=== PATIENT | female | born 1945 | race Caucasian/White ===

== ENCOUNTER 2018-03-07 10:18 | Emergency (ER) | payer MEDICARE, BC ==
[~2018-03-07] VITALS: Ht 157.5 cm; Wt 58.2 kg
[~2018-03-07 10:18] MED LIST: ASPI325T PO; HYDR-2768 PO; LEVEMIR SQ; METF500 PO; METF500T PO; OMEP20CA5 PO
[2018-03-07 10:26] VITALS: BP 175/88; PULSE 116; RESP 16; TEMP 98.5; O2SAT 96
[2018-03-07] MEDS ORDERED: diphenhydrAMINE HCL 50 MG/ML VIAL IV PUSH ONE (11:00)
[2018-03-07] MEDS ORDERED: CIPR-9 PO (11:00)
[2018-03-07] MEDS ORDERED: LEVEMIR SQ (11:00)
[2018-03-07] MEDS ORDERED: methylPREDNISolone SOD SUCC 125 MG/2 ML VIAL IV PUSH ONE (11:00)
[2018-03-07] MEDS ORDERED: AMLO5TAB2 PO (11:00)
[2018-03-07] MEDS ORDERED: METF1000 PO (11:00)
[2018-03-07] MEDS ORDERED: ASPI-516 CHEW (11:00)
[2018-03-07] MEDS ORDERED: ONDANSETRON HCL 4 MG/2 ML VIAL IV PUSH ONE (11:15)
--- NOTE | 2018-03-07 11:35 | PD ---
HPI Chief Complaint: Allergic/Adverse Reaction Time Seen by Provider: 10:58 Travel History International Travel<30 days: No Contact w/Intl Traveler<30days: No Traveled to known affect area: No History of Present Illness HPI 72-year-old female is complaining of swelling of her lower lip. This started this morning got a little bit worse. She does not have any rash. It started as a little bit of pain on the left side. She finished a course of Cipro yesterday. She takes amlodipine for high blood pressure. She does not take an LOKESH inhibitor. She is not short of breath PFSH Past Medical History Hx Anticoagulant Therapy: Yes (asa 81mg) Heart Rhythm Problems: No Cancer: No Cardiovascular Problems: Yes (htn on meds) High Cholesterol: No Chest Pain: No Congestive Heart Failure: No Diabetes: Yes (type 2) Patient Takes Glucophage: Yes Diminished Hearing: No Headaches: Yes Hypertension: Yes Musculoskeletal: No Neurologic: Yes (migraines) Psychiatric: No Reproductive: No Respiratory: No Immunizations Current: Yes Migraines: Yes Pneumonia: Yes Thyroid Disease: No Tetanus Vaccination: > 5 Years Influenza Vaccination: Yes ?: Not Menopausal: Yes Past Surgical History Cholecystectomy: Yes Joint Replacement: Yes (LEFT KNEE) Tonsillectomy: Yes Other Surgery: Yes (left knee replacement, cholecystectomy) Social History Alcohol Use: No Tobacco Use: No Substance Use: No Allergies-Medications (Allergen,Severity, Reaction): Coded Allergies: penicillin G (Unverified Allergy, Severe, 03/07/18) grass pollen (Unverified Allergy, Intermediate, Cough, 03/07/18) house dust (Unverified Allergy, Intermediate, Cough, 03/07/18) mold (Unverified Allergy, Intermediate, Cough, 03/07/18) prednisone (Unverified Allergy, Intermediate, elevaled blood sugar , ) sulfamethoxazole (Unverified Allergy, Intermediate, 03/07/18) sumatriptan (Unverified Allergy, Intermediate, Muscle weeknes , 03/07/18) trimethoprim (Unverified Allergy, Intermediate, 03/07/18) Uncoded Allergies: perfume (Allergy, Intermediate, Cough, 12/10/14) Reported Meds & Prescriptions Reported Meds & Active Scripts Active Reported Cipro (Ciprofloxacin HCl) 500 Mg Tab 500 Mg PO BID Aspirin 81 Mg Chew 81 Mg CHEW DAILY Levemir Inj (Insulin Detemir) 1,000 unit/ 10 ML Vial 20 Units SQ DAILY Do not mix with any other Insulin. Amlodipine (Amlodipine Besylate) 5 Mg Tab 5 Mg PO DAILY Metformin (Metformin HCl) 1,000 Mg Tab 1,000 Mg PO BIDPC Review of Systems General / Constitutional: No: Fever, Chills Eyes: No: Diploplia, Blurred Vision HENT: Positive: Other (Swollen lymph), No: Headaches, Vertigo Cardiovascular: No: Chest Pain or Discomfort, Palpitations Respiratory: No: Cough, Shortness of Breath Gastrointestinal: No: Nausea, Vomiting Genitourinary: No: Urgency, Frequency Skin: No Rash, No Itching Neurologic: No: Weakness Physical Exam Narrative GENERAL: Well-developed female SKIN: Focused skin assessment warm/dry. HEAD: Atraumatic. Normocephalic. EYES: Pupils equal and round. No scleral icterus. No injection or drainage. ENT: No nasal bleeding or discharge. Mucous membranes pink and moist. Soft tissue swelling of the lower lip. The tongue is normal. Posterior pharynx is negative NECK: Trachea midline. No JVD. CARDIOVASCULAR: Regular rate and rhythm. No murmur appreciated. RESPIRATORY: No accessory muscle use. Clear to auscultation. Breath sounds equal bilaterally. GASTROINTESTINAL: Abdomen soft, non-tender, nondistended. Hepatic and splenic margins not palpable. MUSCULOSKELETAL: No obvious deformities. No clubbing. No cyanosis. No edema. NEUROLOGICAL: Awake and alert. No obvious cranial nerve deficits. Motor grossly within normal limits. Normal speech. PSYCHIATRIC: Appropriate mood and affect; insight and judgment normal. Data Data Last Documented VS Vital Signs Date Time Temp Pulse Resp B/P (MAP) Pulse Ox O2 Delivery O2 Flow Rate FiO2 03/07/18 10:52 112 96 Room Air 03/07/18 10:26 98.5 16 175/88 (117) Orders Orders Diphenhydramine Inj (Benadryl Inj) (03/07/18 11:00) Methylprednisolone So Succ Inj (Solumedr (03/07/18 11:00) Ondansetron Inj (Zofran Inj) (03/07/18 11:15) MDM Medical Decision Making Medical Screen Exam Complete: Yes Emergency Medical Condition: Yes Medical Record Reviewed: Yes Differential Diagnosis Differential includes angioedema of the lip, allergic reaction Narrative Course Patient is quite sure she is not on LOKESH inhibitor. She did finish her course of Cipro yesterday and this may be the cause. She has been given Benadryl and Solu-Medrol. She has been observed and there is been no progression. She is stable for discharge Diagnosis Primary Impression: Allergic reaction Additional Impression: Angioedema of lips Additional Instructions: Return if worsening or recurrence of symptoms Disposition: 01 DISCHARGE HOME Condition: Stable Shen Montanez MD Mar 07, 2018 11:35
[2018-03-07 12:37] VITALS: BP 153/70; PULSE 103; RESP 18; O2SAT 95
== END 2018-03-07 12:56 | disposition home or self-care (01) ==
LOC: PHED 10:18
DX: T78.3XXA Angioneurotic edema, initial encounter (principal); T78.40XA Allergy, unspecified, initial encounter; R22.0 Localized swelling, mass and lump, head; I10 Essential (primary) hypertension; E11.9 Type 2 diabetes mellitus without complications; Z79.82 Long term (current) use of aspirin; Z79.899 Other long term (current) drug therapy; Z79.4 Long term (current) use of insulin; Z88.0 Allergy status to penicillin
CPT/HCPCS: 96374; 96375; 99284; J1200; J2405; J2930